=== PATIENT | male | born 1945 | race Caucasian/White ===

== ENCOUNTER 2023-03-12 09:46 | Inpatient (IN) | payer MEDICARE ==
[2023-03-12] VITALS (18 sets, daily range): BP systolic 96–164; BP diastolic 41–141
[~2023-03-12] VITALS: Ht 182.9 cm; Wt 102.1 kg
[2023-03-12] MEDS ORDERED: ENOXAPARIN SODIUM INJ 100 MG/ML SYR SC STA (10:05)
[2023-03-12] MEDS ORDERED: ASPIRIN 81 MG CHEW TAB PO ONE ×2 (10:15→11:30)
[2023-03-12] MEDS ORDERED: SODIUM CHLORIDE FLUSH 10 ML SYR IV PRN (10:15)
[2023-03-12 10:22] LABS: BASOPHILS # (AUTO) 0.1 (0.0-0.1); BASOPHILS % 0.7 % (0.0-1.0); EOSINOPHILS # (AUTO) 0.2 (0.0-0.4); EOSINOPHILS % 3.1 % (0.0-6.0); HEMATOCRIT 42.7 % (38.2-49.6); HEMOGLOBIN 14.8 g/dL (14.0-18.0); LYMPHOCYTES # (AUTO) 0.7 (1.0-3.2); LYMPHOCYTES % 10.5 % (18.0-39.1); MEAN CORPUSCULAR HEMOGLOBIN 32.4 pg (28-32); MEAN CORPUSCULAR HGB CONC 34.7 g/dL (31-35); MEAN CORPUSCULAR VOLUME 93.4 fL (81-99); MONOCYTES # (AUTO) 0.6 (0.2-0.8); MONOCYTES % 8.2 % (4.4-11.3); NEUTROPHILS # (AUTO) 5.5 (2.1-6.9); NEUTROPHILS % 77.2 % (38.7-80.0); PLATELET COUNT 180 x10e3/uL (140-360); RED BLOOD COUNT 4.57 x10e6/uL (4.3-5.7); RED CELL DISTRIBUTION WIDTH 12.9 % (11.7-14.4)
[2023-03-12 10:38] LABS: ALBUMIN 3.4 g/dL (3.5-5.0); ALBUMIN/GLOBULIN RATIO 1.1 (0.8-2.0); CALCIUM 8.8 mg/dL (8.4-10.2); CREATININE, SERUM 1.1 mg/dL (0.72-1.25)
[2023-03-12] MEDS ORDERED: ONDANSETRON HCL INJ 2MG/ML 2ML 2 MG/ML VIAL IV PRN (11:30)
[2023-03-12] MEDS ORDERED: SODIUM CHLORIDE FLUSH 10 ML SYR INJ PRN (11:30)
[2023-03-12] MEDS ORDERED: FUROSEMIDE INJ 10 MG/ML 4 ML VIAL IV ONE (12:15)
[2023-03-12] MEDS ORDERED: ACETAMINOPHEN 325 MG TAB PO PRN (12:15)
[2023-03-12] MEDS ORDERED: CLONIDINE HCL 0.1 MG TAB PO PRN (12:15)
[2023-03-12] MEDS ORDERED: CLOPIDOGREL75 MG PO (15:41)
[2023-03-12] MEDS ORDERED: LEXAPRO20 MG PO (15:41)
[2023-03-12] MEDS ORDERED: ASPIRIN81 MG PO (15:41)
[2023-03-12] MEDS ORDERED: FISH OIL 1,0001 EAC3 (15:41)
[2023-03-12] MEDS ORDERED: FINASTERIDE5 MG PO (15:41)
[2023-03-12] MEDS ORDERED: ATORVASTATIN CA20 MG PO (15:41)
[2023-03-12] MEDS ORDERED: FLOMAX0.4 MG PO (15:41)
[2023-03-12] MEDS ORDERED: TRANDOLAPRIL1 MG PO (15:41)
[2023-03-12] MEDS ORDERED: WELLBUTRIN SR100 MG PO (15:41)
[2023-03-12] MEDS ORDERED: ZETIA10 MG PO (15:41)
[2023-03-12 18:12] LABS: CHOL/HDL RATIO 2.7 (3.9-4.7)
[2023-03-12 18:20] LABS: CREATINE KINASE MB 6.1 ng/mL (0-5.0)
[2023-03-12] MEDS: ATORVASTATIN 40 MG TAB PO SCH (21:54)
[2023-03-13] VITALS (34 sets, daily range): BP systolic 92–161; BP diastolic 48–95
[2023-03-13 05:52] LABS: BASOPHILS # (AUTO) 0.1 (0.0-0.1); BASOPHILS % 0.7 % (0.0-1.0); EOSINOPHILS # (AUTO) 0.3 (0.0-0.4); EOSINOPHILS % 4.2 % (0.0-6.0); HEMATOCRIT 42.8 % (38.2-49.6); HEMOGLOBIN 14.5 g/dL (14.0-18.0); LYMPHOCYTES # (AUTO) 0.9 (1.0-3.2); LYMPHOCYTES % 13.1 % (18.0-39.1); MEAN CORPUSCULAR HEMOGLOBIN 31.7 pg (28-32); MEAN CORPUSCULAR HGB CONC 33.9 g/dL (31-35); MEAN CORPUSCULAR VOLUME 93.7 fL (81-99); MONOCYTES # (AUTO) 0.8 (0.2-0.8); MONOCYTES % 11.6 % (4.4-11.3); NEUTROPHILS # (AUTO) 4.8 (2.1-6.9); NEUTROPHILS % 70.1 % (38.7-80.0); PLATELET COUNT 164 x10e3/uL (140-360); RED BLOOD COUNT 4.57 x10e6/uL (4.3-5.7)
[2023-03-13 06:15] LABS: INR 1.04; PROTHROMBIN TIME 14.1 seconds (11.9-14.5)
[2023-03-13 06:16] LABS: PARTIAL THROMBOPLASTIN TIME 33.9 seconds (23.8-35.5)
[2023-03-13 06:23] LABS: ALBUMIN 3.2 g/dL (3.5-5.0); CALCIUM 8.7 mg/dL (8.4-10.2); CREATININE, SERUM 1.15 mg/dL (0.72-1.25)
[2023-03-13] MEDS: ASPIRIN 81 MG CHEW TAB PO SCH (08:32)
[2023-03-13] MEDS ORDERED: ASPIRIN 81 MG ENTERIC COATED PO SCH (09:00)
[2023-03-13 09:59] LABS: CREATINE KINASE MB 4.7 ng/mL (0-5.0)
[2023-03-13] MEDS ORDERED: LIDOCAINE 1% W/EPINEPHRINE 20 ML VIAL ONE (10:18)
[2023-03-13] MEDS ORDERED: GENTAMICIN SULFATE 40 MG/ML 2 ML VIAL ONE (10:18)
[2023-03-13] MEDS ORDERED: SODIUM CHLORIDE 0.9% 250ML 250 ML ONE (10:19)
[2023-03-13] MEDS ORDERED: SODIUM CHLORIDE 0.9% 1000ML 3,000 ML ONE (10:19)
[2023-03-13] MEDS ORDERED: Vancomycin IV 1 GM VIAL ONE (10:19)
[2023-03-13] MEDS ORDERED: LIDOCAINE HCL 2% LOCAL 20 ML VIAL ONE (10:19)
[2023-03-13] MEDS ORDERED: MIDAZOLAM HCL 2 MG/2 ML VIAL ONE (10:20)
[2023-03-13] MEDS ORDERED: FENTANYL CITRATE/PF 100MCG/2 ML INJ ONE (10:20)
[2023-03-13] MEDS: FINASTERIDE 5 MG TAB PO SCH (13:57)
[2023-03-13] MEDS: BUPROPION HCL 100 MG TAB PO SCH ×2 (13:57→17:27)
[2023-03-13] MEDS: TAMSULOSIN HCL 0.4 MG CAP PO SCH ×2 (13:57→17:27)
[2023-03-13] MEDS: ESCITALOPRAM OXALATE 10 MG TAB PO SCH (13:57)
[2023-03-13] MEDS: EZETIMIBE 10 MG TAB PO SCH (13:57)
[2023-03-13] MEDS: LISINOPRIL 10 MG TAB PO SCH (13:58)
[2023-03-13] MEDS: ATORVASTATIN 40 MG TAB PO SCH (20:42)
[2023-03-14] VITALS (10 sets, daily range): BP systolic 126–154; BP diastolic 76–89
[2023-03-14] MEDS: FINASTERIDE 5 MG TAB PO SCH (08:21)
[2023-03-14] MEDS: ESCITALOPRAM OXALATE 10 MG TAB PO SCH (08:21)
[2023-03-14] MEDS: TAMSULOSIN HCL 0.4 MG CAP PO SCH (08:21)
[2023-03-14] MEDS: EZETIMIBE 10 MG TAB PO SCH (08:21)
[2023-03-14] MEDS: LISINOPRIL 10 MG TAB PO SCH (08:21)
[2023-03-14] MEDS: BUPROPION HCL 100 MG TAB PO SCH (08:22)
[2023-03-14] MEDS: ASPIRIN 81 MG CHEW TAB PO SCH (08:22)
[2023-03-14] MEDS ORDERED: METOPROLOL SUCCINATE 25 MG TAB XL PO SCH (10:30)
[2023-03-14] MEDS ORDERED: MINOCYCLINE HCL 50 MG CAP PO SCH (11:00)
[2023-03-14] MEDS ORDERED: TOPROL XL25 MG PO (11:40)
[2023-03-14] MEDS ORDERED: ELIQUIS5 MG PO (11:40)
[2023-03-14] MEDS ORDERED: AMIODARONE HCL200 MG PO (11:40)
[2023-03-14] MEDS ORDERED: AMIODARONE HCL 200 MG TAB PO SCH (17:00)
== END 2023-03-14 12:45 | disposition home or self-care (01) | DRG 242 ==
LOC: ER 09:51 → ERHOLD 11:26 → ICU 14:54
PROVIDERS: ADMIT Internal Medicine; ATTEND Internal Medicine
PROC: 0JH606Z Insertion of Pacemaker, Dual Chamber into Chest Subcutaneous Tissue and Fascia, Open Approach (ICD-10-PCS; principal; 2023-03-12)
PROC: 02H63JZ Insertion of Pacemaker Lead into Right Atrium, Percutaneous Approach (ICD-10-PCS; 2023-03-12)
PROC: 02HK3JZ Insertion of Pacemaker Lead into Right Ventricle, Percutaneous Approach (ICD-10-PCS; 2023-03-12)
DX: I49.5 Sick sinus syndrome (principal); I50.33 Acute on chronic diastolic (congestive) heart failure; I48.3 Typical atrial flutter; I25.10 Atherosclerotic heart disease of native coronary artery without angina pectoris; Z95.1 Presence of aortocoronary bypass graft; N40.0 Benign prostatic hyperplasia without lower urinary tract symptoms; I11.0 Hypertensive heart disease with heart failure; F32.A Depression, unspecified; Z79.01 Long term (current) use of anticoagulants
CPT/HCPCS: 33208; 36415; 71046; 80053; 80061; 82550; 82553; 83735; 83880; 84443; 84484; 85025; 85610; 85730; 93005; 93306; 94760; 99152; 99153; 99284; C1769; C1785; C1898; J1580; J1650; J1940; J2001; J2250; J7030; J7050

== ENCOUNTER 2023-03-17 19:31 | Emergency (ER) | payer MEDICARE ==
[~2023-03-17] VITALS: Ht 182.9 cm; Wt 102.1 kg
[~2023-03-17 19:31] MED LIST: AMIODARONE HCL200 MG PO; ASPIRIN81 MG PO; ATORVASTATIN CA20 MG PO; CLOPIDOGREL75 MG PO; ELIQUIS5 MG PO; FINASTERIDE5 MG PO; FISH OIL 1,0001 EAC3; FLOMAX0.4 MG PO; LEXAPRO20 MG PO; TOPROL XL25 MG PO; TRANDOLAPRIL1 MG PO; WELLBUTRIN SR100 MG PO; ZETIA10 MG PO
[2023-03-17] MEDS ORDERED: ACETAMINOPHEN 325 MG TAB PO STA (20:38)
[2023-03-17 21:24] LABS: BASOPHILS # (AUTO) 0.1 (0.0-0.1); BASOPHILS % 0.7 % (0.0-1.0); EOSINOPHILS # (AUTO) 0.1 (0.0-0.4); EOSINOPHILS % 0.9 % (0.0-6.0); HEMATOCRIT 46.5 % (38.2-49.6); HEMOGLOBIN 15.3 g/dL (14.0-18.0); LYMPHOCYTES # (AUTO) 0.7 (1.0-3.2); LYMPHOCYTES % 7.5 % (18.0-39.1); MEAN CORPUSCULAR HEMOGLOBIN 32.1 pg (28-32); MEAN CORPUSCULAR HGB CONC 32.9 g/dL (31-35); MEAN CORPUSCULAR VOLUME 97.5 fL (81-99); MONOCYTES # (AUTO) 1.2 (0.2-0.8); NEUTROPHILS # (AUTO) 6.7 (2.1-6.9); NEUTROPHILS % 76.4 % (38.7-80.0); PLATELET COUNT 168 x10e3/uL (140-360); RED BLOOD COUNT 4.77 x10e6/uL (4.3-5.7); RED CELL DISTRIBUTION WIDTH 12.8 % (11.7-14.4)
[2023-03-17 21:41] LABS: ALBUMIN 3.6 g/dL (3.5-5.0); ALBUMIN/GLOBULIN RATIO 1.1 (0.8-2.0); ANION GAP 17.5 mmol/L (8-16); CALCIUM 9.2 mg/dL (8.4-10.2); CREATININE, SERUM 1.29 mg/dL (0.72-1.25); POTASSIUM 4.5 mmol/L (3.5-5.1)
[2023-03-17 22:11] LABS: CLARITY,URINE CLEAR (CLEAR); COLOR,URINE YELLOW (YELLOW); KETONES,URINE NEGATIVE (NEGATIVE); LEUKOCYTE ESTERASE ,URINE NEGATIVE (NEGATIVE); NITRITE,URINE NEGATIVE (NEGATIVE); PROTEIN,URINE DIPSTICK 1+ (NEGATIVE); URINE UROBILINOGEN 0.2 mg/dL (0.2 - 1)
[2023-03-17 22:16] LABS: BACTERIA,URINE FEW /HPF; EPITHELIAL CELLS,URINE RARE /LPF; WBC,URINE (MAN) 0-5 /HPF (0-5)
[2023-03-17] MEDS ORDERED: PREDNISONE20 MG PO (22:50)
[2023-03-17] MEDS ORDERED: AZITHROMYCIN250 MG PO (22:50)
[2023-03-17] MEDS ORDERED: VENTOLIN HFA18 GM INH (22:50)
[2023-03-17] MEDS ORDERED: ONDANSETRON HCL 4 MG ORAL DISINTEGRATING TAB ONE (23:04)
== END 2023-03-17 23:21 | disposition home or self-care (01) ==
LOC: ER 19:40
DX: R50.9 Fever, unspecified (principal); U07.1 COVID-19; R05.9 Cough, unspecified; I50.9 Heart failure, unspecified; E78.5 Hyperlipidemia, unspecified; I25.10 Atherosclerotic heart disease of native coronary artery without angina pectoris; I25.2 Old myocardial infarction
CPT/HCPCS: 36415; 71045; 80053; 81001; 83880; 85025; 93005; 99284; J2543; U0002; Q0162